=== PATIENT | male | born 2000 | race Hispanic/Latino ===

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

== ENCOUNTER 2021-09-24 18:52 | Inpatient (IN) | payer MEDICAID ==
[~2021-09-24] VITALS: Ht 175.3 cm; Wt 68.0 kg
[~2021-09-24 18:52] MED LIST: BUPR150T3 PO; CLIN-141 PO; CLON0.1T PO; HYD25 PO; INSLAN SQ; INSU200I SQ; INSU3INS3 SQ; LISD70CA PO; METF-444 PO; TRAZ-185 PO
[2021-09-24] MEDS ORDERED: 0.9%NACL 1000ML 1,000 ML IV ONE (19:30)
[2021-09-24 19:34] LABS: ABG BASE EXCESS -18.7 mmol/L (-2.0-3.0); ABG HCO3 6.6 mmol/L (21.0-28.0); ABG OXYGEN SATURATION 97.1 % (95.0-99.0); ABG PCO2 17 mmHg (35-48)
[2021-09-24 19:48] LABS: BASOPHILS % (AUTO) 1.8 % (0.0-5.0); EOSINOPHILS % (AUTO) 0.2 % (0.0-8.0); HEMATOCRIT 50.1 % (42-54); LYMPHOCYTES % (AUTO) 20.3 % (21.0-51.0); MEAN CORPUSCULAR HEMOGLOBIN 28.2 pg (27.0-33.0); MEAN CORPUSCULAR HGB CONC 35.3 g/dL (32.0-36.0); MEAN CORPUSCULAR VOLUME 79.9 fL (80-100); NEUTROPHILS % (AUTO) 66.1 % (40.0-77.0); PLATELET COUNT (AUTO) 276 K/uL (130-400); RED BLOOD CELL COUNT(AUTO) 6.27 MIL/uL (4.50-6.20); RED CELL DISTRIBUTION WIDTH 13.5 % (11.0-15.5); WHITE BLOOD COUNT (AUTO) 12.6 K/uL (4.8-10.8)
[2021-09-24 20:05] LABS: CREATININE 1.2 mg/dL (0.5-1.5); POTASSIUM 4.1 mmol/L (3.5-5.1)
[2021-09-24 20:11] LABS: ALBUMIN 4.4 g/dL (3.5-5.0); BILIRUBIN,TOTAL 0.5 mg/dL (0.2-1.0); MAGNESIUM 1.8 mg/dL (1.80-2.40); PHOSPHORUS 3.5 mg/dL (2.5-4.9)
[2021-09-24] MEDS ORDERED: LIDOCAINE HCL 1% 10 ML VIAL ONE (20:26)
[2021-09-24] MEDS ORDERED: 0.9%NACL 1000ML 1,000 ML IV SCH ×2 (20:30→21:00)
[2021-09-24] MEDS ORDERED: DEXTROSE 5 %-0.45 % NACL 1,000 ML IV PRN (20:30)
[2021-09-24] MEDS ORDERED: INSULIN HUMULIN R 100 UNIT/ML 3ML IV SCH (20:30)
[2021-09-24] MEDS ORDERED: HYDRALAZINE 20MG/ML VIAL IV PRN (21:00)
[2021-09-24] MEDS ORDERED: ONDANSETRON 4MG INJ IV PRN (21:00)
[2021-09-24] MEDS: CLINDAMYCIN IVPB 600MG/50ML 50 ML IV SCH (21:37)
[2021-09-24] MEDS ORDERED: ACETAMINOPHEN 325 MG TAB ONE (22:13)
[2021-09-24] MEDS ORDERED: ACETAMINOPHEN 325 MG TAB PO ONE (22:30)
[2021-09-24] MEDS: INSULIN REGULAR, HUMAN 3ML 100 UNIT in 0.9%NACL 100ML 99 ML IV PRN ×4 (22:32→23:47)
[2021-09-24] MEDS: 0.9%NACL 1000ML 1,000 ML IV SCH (22:33)
[2021-09-24 22:55] LABS: APPEARANCE,URINE Clear (CLEAR); BILIRUBIN,URINE Negative (NEGATIVE); COLOR,URINE Yellow (YELLOW); GLUCOSE, URINE (UA) >=1000 mg/dL (NEGATIVE); KETONES,URINE >=160 mg/dL (NEGATIVE); LEUKOCYTE ESTERASE ,URINE Negative (NEGATIVE); NITRATE,URINE Negative (NEGATIVE); OCCULT BLOOD,URINE Negative (NEGATIVE); PH,URINE 5.5 (5.0-8.0); PROTEIN,URINE POS 2+ mg/dL (NEGATIVE); UROBILINOGEN,URINE 0.2 mg/dL (0.2-1.0)
[2021-09-24 23:07] LABS: BACTERIA,URINE Few /HPF (None Seen)
[2021-09-24 23:25] LABS: ABG BASE EXCESS -17.5 mmol/L (-2.0-3.0); ABG OXYGEN SATURATION 97.9 % (95.0-99.0); ABG PCO2 16 mmHg (35-48)
[2021-09-24 23:49] LABS: CREATININE 1.1 mg/dL (0.5-1.5); POTASSIUM 3.7 mmol/L (3.5-5.1)
[2021-09-25] VITALS (8 sets, daily range): BP systolic 123–147; BP diastolic 66–99
[2021-09-25] MEDS: DEXTROSE 5 %-0.45 % NACL 1,000 ML IV PRN ×2 (01:47→20:46)
[2021-09-25] MEDS: INSULIN REGULAR, HUMAN 3ML 100 UNIT in 0.9%NACL 100ML 99 ML IV PRN ×6 (01:47→05:45)
[2021-09-25] MEDS: 0.9%NACL 1000ML 1,000 ML IV SCH ×4 (02:00→22:00)
[2021-09-25 03:36] LABS: ABG BASE EXCESS -14.7 mmol/L (-2.0-3.0); ABG HCO3 10.2 mmol/L (21.0-28.0); ABG OXYGEN SATURATION 97.2 % (95.0-99.0); ABG PCO2 23 mmHg (35-48)
[2021-09-25 04:02] LABS: MAGNESIUM 1.8 mg/dL (1.80-2.40); PHOSPHORUS 2.4 mg/dL (2.5-4.9); POTASSIUM 3.4 mmol/L (3.5-5.1)
[2021-09-25] MEDS: CLINDAMYCIN IVPB 600MG/50ML 50 ML IV SCH (05:55)
[2021-09-25 06:34] LABS: ABG OXYGEN SATURATION 90.2 % (95.0-99.0); BASE EXCESS,VENOUS BLOOD GAS -12.1 (-2.0-3.0); HCO3,VENOUS BLOOD GAS 14.2 (21.0-28.0); PCO2,VENOUS BLOOD GAS 34 (35-48)
[2021-09-25 07:05] LABS: CREATININE 0.9 mg/dL (0.5-1.5); MAGNESIUM 1.7 mg/dL (1.80-2.40); PHOSPHORUS 2.6 mg/dL (2.5-4.9); POTASSIUM 3.1 mmol/L (3.5-5.1)
[2021-09-25 09:38] LABS: HEMATOCRIT 47.4 % (42-54); MEAN CORPUSCULAR HEMOGLOBIN 28.3 pg (27.0-33.0); MEAN CORPUSCULAR HGB CONC 34.8 g/dL (32.0-36.0); MEAN CORPUSCULAR VOLUME 81.3 fL (80-100); RED BLOOD CELL COUNT(AUTO) 5.83 MIL/uL (4.50-6.20); RED CELL DISTRIBUTION WIDTH 13.8 % (11.0-15.5); WHITE BLOOD COUNT (AUTO) 11.6 K/uL (4.8-10.8)
[2021-09-25] MEDS: ENOXAPARIN SODIUM 30 MG/0.3 ML SQ SCH (10:38)
[2021-09-25 11:47] LABS: ABG OXYGEN SATURATION 53.2 % (95.0-99.0); BASE EXCESS,VENOUS BLOOD GAS -10.2 (-2.0-3.0); PCO2,VENOUS BLOOD GAS 36 (35-48)
[2021-09-25 12:48] LABS: CREATININE 0.9 mg/dL (0.5-1.5); MAGNESIUM 1.8 mg/dL (1.80-2.40); PHOSPHORUS 2.4 mg/dL (2.5-4.9); POTASSIUM 3.4 mmol/L (3.5-5.1)
[2021-09-25] MEDS ORDERED: SERT-440 PO (13:07)
[2021-09-25] MEDS ORDERED: ROSU10TA28 PO (13:07)
[2021-09-25] MEDS ORDERED: ARIP15TA18 PO (13:07)
[2021-09-25] MEDS ORDERED: METF-444 PO (13:07)
[2021-09-25] MEDS ORDERED: HYDR-4030 PO (13:07)
[2021-09-25] MEDS ORDERED: CLON0.1T PO (13:07)
[2021-09-25] MEDS ORDERED: CLON0.3T PO (13:07)
[2021-09-25] MEDS ORDERED: TRAZ-187 PO (13:07)
[2021-09-25] MEDS ORDERED: VANCOMYCIN PROTOCOL PER PHARMACY IV SCH (13:30)
[2021-09-25] MEDS: MEROPENEM 1 GM VIAL IVP SCH ×2 (14:34→21:25)
[2021-09-25] MEDS: VANCOMYCIN 1G/250ML KIT 250 ML IV SCH ×2 (14:34→22:24)
[2021-09-25 15:37] LABS: CREATININE 0.9 mg/dL (0.5-1.5); MAGNESIUM 1.6 mg/dL (1.80-2.40); PHOSPHORUS 2.2 mg/dL (2.5-4.9); POTASSIUM 3.2 mmol/L (3.5-5.1)
[2021-09-25 19:27] LABS: ABG OXYGEN SATURATION 92.5 % (95.0-99.0); PCO2,VENOUS BLOOD GAS 32 (35-48)
[2021-09-25 19:56] LABS: CREATININE 0.8 mg/dL (0.5-1.5); MAGNESIUM 1.7 mg/dL (1.80-2.40); PHOSPHORUS 1.8 mg/dL (2.5-4.9)
[2021-09-25 19:58] LABS: POTASSIUM 2.9 mmol/L (3.5-5.1)
[2021-09-25] MEDS: POTASSIUM CHLORIDE 10MEQ/100ML 100 ML IV PRN (20:05)
[2021-09-25] MEDS ORDERED: POTASSIUM PHOS 15 mMOL+NS250ML 250 ML IV PRN (21:00)
[2021-09-25] MEDS: MAGNESIUM 2GM PREMIX 50ML 50 ML IV PRN (23:16)
[2021-09-26] VITALS (14 sets, daily range): BP systolic 109–130; BP diastolic 55–85
[2021-09-26] MEDS: POTASSIUM CHLORIDE 10MEQ/100ML 100 ML IV PRN (01:28)
[2021-09-26] MEDS: 0.9%NACL 1000ML 1,000 ML IV SCH ×5 (03:00→17:52)
[2021-09-26 04:03] LABS: HEMOGLOBIN A1C 12.9 % (4.0-6.0)
[2021-09-26 04:26] LABS: POTASSIUM 2.9 mmol/L (3.5-5.1)
[2021-09-26 04:27] LABS: CREATININE 0.7 mg/dL (0.5-1.5); MAGNESIUM 1.8 mg/dL (1.80-2.40); PHOSPHORUS 1.9 mg/dL (2.5-4.9)
[2021-09-26] MEDS ORDERED: POTASSIUM CHLORIDE 10MEQ/100ML 100 ML IV ONE (04:36)
[2021-09-26] MEDS ORDERED: LIDOCAINE HCL-MPF 1% 2ML VIAL IV PRN (05:00)
[2021-09-26] MEDS ORDERED: POTASSIUM CHLORIDE 20MEQ/100ML 100 ML IV PRN (05:00)
[2021-09-26] MEDS: MEROPENEM 1 GM VIAL IVP SCH ×3 (05:01→21:42)
[2021-09-26] MEDS: MAGNESIUM 2GM PREMIX 50ML 50 ML IV PRN ×2 (05:52→18:38)
[2021-09-26] MEDS ORDERED: INSULIN GLARGINE 100 UNITS/ML 10 ML VIAL SQ ONE (06:30)
[2021-09-26] MEDS: INSULIN HUMULIN R 100 UNIT/ML 3ML SQ SCH ×8 (06:49→22:01)
[2021-09-26] MEDS ORDERED: KCL 20 MEQ ERTAB PO PRN (07:30)
[2021-09-26] MEDS: VANCOMYCIN 1G/250ML KIT 250 ML IV SCH ×2 (08:43→21:43)
[2021-09-26] MEDS: ENOXAPARIN SODIUM 30 MG/0.3 ML SQ SCH (08:46)
[2021-09-26] MEDS: KCL 20 MEQ ERTAB PO SCH (08:46)
[2021-09-26 08:53] LABS: ABG BASE EXCESS -5.6 mmol/L (-2.0-3.0); ABG HCO3 19.1 mmol/L (21.0-28.0); ABG PCO2 35 mmHg (35-48)
[2021-09-26] MEDS ORDERED: ACETAMINOPHEN 325 MG TAB PO PRN (10:30)
[2021-09-26] MEDS ORDERED: MORPHINE 2 MG SYG ONE (14:56)
[2021-09-26] MEDS ORDERED: MORPHINE 2 MG SYG IVP ONE (14:56)
[2021-09-26] MEDS: IBUPROFEN 400 MG TABLET PO PRN (17:52)
[2021-09-26 20:12] LABS: HEMATOCRIT 39.4 % (42-54); MEAN CORPUSCULAR HEMOGLOBIN 27.8 pg (27.0-33.0); MEAN CORPUSCULAR HGB CONC 34.5 g/dL (32.0-36.0); MEAN CORPUSCULAR VOLUME 80.4 fL (80-100); PLATELET COUNT (AUTO) 181 K/uL (130-400); RED CELL DISTRIBUTION WIDTH 13.9 % (11.0-15.5); WHITE BLOOD COUNT (AUTO) 6.4 K/uL (4.8-10.8)
[2021-09-26 20:17] LABS: MAGNESIUM 2.2 mg/dL (1.80-2.40); POTASSIUM 3.9 mmol/L (3.5-5.1)
[2021-09-26 20:35] LABS: BAND NEUTROPHILS % (MANUAL) 8 % (0-2); LYMPHOCYTES % (MANUAL) 16 % (22-44); MAN.DIFF COMMENT-IMPRESSION MANUAL DIFFERENTIAL; MONOCYTES % (MANUAL) 5 % (2-9); REACTIVE LYMPHOCYTES 6 % (0-0); SEGMENTED NEUTROPHILS % 65 % (40-70)
[2021-09-26] MEDS: ARIPIPRAZOLE 5 MG TABLET PO SCH (20:43)
[2021-09-26] MEDS ORDERED: 0.9% NACL 250ML 250 ML ONE (21:04)
[2021-09-26] MEDS: TRAZODONE HCL 100 MG TABLET PO SCH (21:43)
[2021-09-26] MEDS: CLONIDINE HCL 0.3 MG TABLET PO SCH (21:43)
[2021-09-26] MEDS: SERTRALINE HCL 50 MG TABLET PO SCH (21:43)
[2021-09-27] MEDS: 0.9%NACL 1000ML 1,000 ML IV SCH ×3 (01:14→09:00)
[2021-09-27 04:03] VITALS: BP 109/72
[2021-09-27] MEDS: MEROPENEM 1 GM VIAL IVP SCH (06:29)
[2021-09-27] MEDS: INSULIN HUMULIN R 100 UNIT/ML 3ML SQ SCH ×7 (06:38→20:40)
[2021-09-27 06:43] LABS: BASOPHILS % (AUTO) 1.1 % (0.0-5.0); EOSINOPHILS % (AUTO) 2.5 % (0.0-8.0); HEMATOCRIT 38.2 % (42-54); MEAN CORPUSCULAR HEMOGLOBIN 27.5 pg (27.0-33.0); MEAN CORPUSCULAR HGB CONC 34.6 g/dL (32.0-36.0); MEAN CORPUSCULAR VOLUME 79.6 fL (80-100); MONOCYTES % (AUTO) 12.3 % (3.0-13.0); NEUTROPHILS % (AUTO) 37.7 % (40.0-77.0); PLATELET COUNT (AUTO) 174 K/uL (130-400); WHITE BLOOD COUNT (AUTO) 4.4 K/uL (4.8-10.8)
[2021-09-27 06:50] LABS: CREATININE 0.6 mg/dL (0.5-1.5); POTASSIUM 3.6 mmol/L (3.5-5.1)
[2021-09-27] MEDS: INSULIN GLARGINE 100 UNITS/ML 10 ML VIAL SQ SCH (07:02)
[2021-09-27 07:35] VITALS: BP 112/62
[2021-09-27] MEDS ORDERED: COMPOUND IV REFRIGERATED 1 EACH IVSOLN MISC PRN (09:00)
[2021-09-27] MEDS: VYVANSE 70 MG PO SCH (09:00)
[2021-09-27] MEDS: KCL 20 MEQ ERTAB PO SCH (09:00)
[2021-09-27] MEDS ORDERED: VANCOMYCIN 1.25GM/NS 250ML IVPB SCH ×2 (09:00)
[2021-09-27] MEDS: CLONIDINE HCL 0.1 MG TABLET PO SCH (09:03)
[2021-09-27] MEDS: BUPROPION HCL 150 MG TABLET.SA PO SCH (09:12)
[2021-09-27] MEDS: HYDROXYZINE 25 MG TABLET PO SCH (09:12)
[2021-09-27] MEDS: ATORVASTATIN 20 MG TABLET PO SCH (09:12)
[2021-09-27] MEDS: ENOXAPARIN SODIUM 30 MG/0.3 ML SQ SCH (09:14)
[2021-09-27 11:35] VITALS: BP 120/74
[2021-09-27] MEDS: CEFAZOLIN SODIUM 1 GM VIAL IVP SCH ×2 (13:27→21:13)
[2021-09-27 15:35] VITALS: BP 121/68
[2021-09-27 20:12] VITALS: BP 110/64
[2021-09-27] MEDS: ARIPIPRAZOLE 5 MG TABLET PO SCH (21:00)
[2021-09-27] MEDS: CLONIDINE HCL 0.3 MG TABLET PO SCH (21:13)
[2021-09-27] MEDS: TRAZODONE HCL 100 MG TABLET PO SCH (21:13)
[2021-09-27] MEDS: SERTRALINE HCL 50 MG TABLET PO SCH (21:13)
[2021-09-27 23:25] VITALS: BP 101/48
[2021-09-28 04:13] VITALS: BP 94/49
[2021-09-28] MEDS: CEFAZOLIN SODIUM 1 GM VIAL IVP SCH ×3 (06:02→19:52)
[2021-09-28] MEDS: INSULIN GLARGINE 100 UNITS/ML 10 ML VIAL SQ SCH (06:41)
[2021-09-28] MEDS: INSULIN HUMULIN R 100 UNIT/ML 3ML SQ SCH ×7 (06:41→19:54)
[2021-09-28 07:21] LABS: BASOPHILS % (AUTO) 0.9 % (0.0-5.0); EOSINOPHILS % (AUTO) 1.3 % (0.0-8.0); LYMPHOCYTES % (AUTO) 54.2 % (21.0-51.0); MEAN CORPUSCULAR HEMOGLOBIN 27.9 pg (27.0-33.0); MEAN CORPUSCULAR HGB CONC 34.4 g/dL (32.0-36.0); MEAN CORPUSCULAR VOLUME 80.9 fL (80-100); MONOCYTES % (AUTO) 8.6 % (3.0-13.0); NEUTROPHILS % (AUTO) 34.1 % (40.0-77.0); PLATELET COUNT (AUTO) 168 K/uL (130-400); RED BLOOD CELL COUNT(AUTO) 4.45 MIL/uL (4.50-6.20); RED CELL DISTRIBUTION WIDTH 13.9 % (11.0-15.5); WHITE BLOOD COUNT (AUTO) 4.5 K/uL (4.8-10.8)
[2021-09-28 07:35] VITALS: BP 96/47
[2021-09-28 07:35] LABS: CREATININE 0.6 mg/dL (0.5-1.5); POTASSIUM 3.6 mmol/L (3.5-5.1)
[2021-09-28] MEDS: CLONIDINE HCL 0.1 MG TABLET PO SCH (08:00)
[2021-09-28] MEDS: ATORVASTATIN 20 MG TABLET PO SCH (08:32)
[2021-09-28] MEDS: ENOXAPARIN SODIUM 30 MG/0.3 ML SQ SCH (08:33)
[2021-09-28] MEDS: HYDROXYZINE 25 MG TABLET PO SCH (08:33)
[2021-09-28] MEDS: BUPROPION HCL 150 MG TABLET.SA PO SCH (08:33)
[2021-09-28] MEDS: VYVANSE 70 MG PO SCH (08:34)
[2021-09-28] MEDS: KCL 20 MEQ ERTAB PO SCH (08:41)
[2021-09-28 11:17] VITALS: BP 97/53
[2021-09-28 15:35] VITALS: BP 107/67
[2021-09-28 19:51] VITALS: BP 114/68
[2021-09-28] MEDS: TRAZODONE HCL 100 MG TABLET PO SCH (19:53)
[2021-09-28] MEDS: CLONIDINE HCL 0.3 MG TABLET PO SCH (19:53)
[2021-09-28] MEDS: ARIPIPRAZOLE 5 MG TABLET PO SCH (19:53)
[2021-09-28] MEDS: SERTRALINE HCL 50 MG TABLET PO SCH (19:53)
[2021-09-28 23:24] VITALS: BP 97/60
[2021-09-29] MEDS: CEFAZOLIN SODIUM 1 GM VIAL IVP SCH ×3 (03:09→20:17)
[2021-09-29 03:36] VITALS: BP 93/51
[2021-09-29 06:59] LABS: BASOPHILS % (AUTO) 0.9 % (0.0-5.0); EOSINOPHILS % (AUTO) 1.6 % (0.0-8.0); HEMATOCRIT 38.1 % (42-54); LYMPHOCYTES % (AUTO) 41.8 % (21.0-51.0); MEAN CORPUSCULAR HEMOGLOBIN 27.6 pg (27.0-33.0); MEAN CORPUSCULAR HGB CONC 33.1 g/dL (32.0-36.0); MEAN CORPUSCULAR VOLUME 83.4 fL (80-100); MONOCYTES % (AUTO) 12.5 % (3.0-13.0); NEUTROPHILS % (AUTO) 42.5 % (40.0-77.0); PLATELET COUNT (AUTO) 189 K/uL (130-400); RED BLOOD CELL COUNT(AUTO) 4.57 MIL/uL (4.50-6.20); RED CELL DISTRIBUTION WIDTH 14.1 % (11.0-15.5); WHITE BLOOD COUNT (AUTO) 5.7 K/uL (4.8-10.8)
[2021-09-29] MEDS: INSULIN GLARGINE 100 UNITS/ML 10 ML VIAL SQ SCH (07:07)
[2021-09-29] MEDS: INSULIN HUMULIN R 100 UNIT/ML 3ML SQ SCH ×7 (07:08→21:00)
[2021-09-29 07:14] LABS: CREATININE 0.7 mg/dL (0.5-1.5); POTASSIUM 4.2 mmol/L (3.5-5.1)
[2021-09-29 08:00] VITALS: BP 87/41
[2021-09-29] MEDS: CLONIDINE HCL 0.1 MG TABLET PO SCH (08:00)
[2021-09-29] MEDS: KCL 20 MEQ ERTAB PO SCH (09:00)
[2021-09-29] MEDS: VYVANSE 70 MG PO SCH (09:00)
[2021-09-29] MEDS: ATORVASTATIN 20 MG TABLET PO SCH (09:34)
[2021-09-29] MEDS: BUPROPION HCL 150 MG TABLET.SA PO SCH (09:35)
[2021-09-29] MEDS: ENOXAPARIN SODIUM 30 MG/0.3 ML SQ SCH (09:35)
[2021-09-29] MEDS: HYDROXYZINE 25 MG TABLET PO SCH (09:36)
[2021-09-29] MEDS: 0.9%NACL 1000ML 1,000 ML IV SCH ×2 (10:46→23:50)
[2021-09-29 11:57] VITALS: BP 96/51
[2021-09-29 15:42] LABS: INR 0.95 (0.85-1.15); PROTHROMBIN TIME 10.4 SEC (9.6-11.6)
[2021-09-29 15:43] LABS: PARTIAL THROMBOPLASTIN TIME 26.2 SEC (26.3-35.5)
[2021-09-29 15:45] VITALS: BP 96/46
[2021-09-29] MEDS: IBUPROFEN 400 MG TABLET PO PRN (18:04)
[2021-09-29 20:00] VITALS: BP 106/68
[2021-09-29] MEDS: TRAZODONE HCL 100 MG TABLET PO SCH (20:16)
[2021-09-29] MEDS: SERTRALINE HCL 50 MG TABLET PO SCH (20:16)
[2021-09-29] MEDS: ARIPIPRAZOLE 5 MG TABLET PO SCH (20:17)
[2021-09-29] MEDS: CLONIDINE HCL 0.3 MG TABLET PO SCH (21:00)
[2021-09-30 00:55] VITALS: BP 91/64
[2021-09-30 04:07] VITALS: BP 102/57
[2021-09-30] MEDS: CEFAZOLIN SODIUM 1 GM VIAL IVP SCH ×3 (04:50→20:42)
[2021-09-30] MEDS: INSULIN HUMULIN R 100 UNIT/ML 3ML SQ SCH ×7 (06:41→20:41)
[2021-09-30] MEDS: INSULIN GLARGINE 100 UNITS/ML 10 ML VIAL SQ SCH (06:52)
[2021-09-30 07:11] LABS: HEMATOCRIT 40.3 % (42-54); MEAN CORPUSCULAR HEMOGLOBIN 27.8 pg (27.0-33.0); MEAN CORPUSCULAR VOLUME 84.1 fL (80-100); RED BLOOD CELL COUNT(AUTO) 4.79 MIL/uL (4.50-6.20); RED CELL DISTRIBUTION WIDTH 13.7 % (11.0-15.5); WHITE BLOOD COUNT (AUTO) 5.7 K/uL (4.8-10.8)
[2021-09-30 07:27] LABS: CREATININE 0.6 mg/dL (0.5-1.5); POTASSIUM 4.2 mmol/L (3.5-5.1)
[2021-09-30] MEDS: KCL 20 MEQ ERTAB PO SCH (07:34)
[2021-09-30 08:00] VITALS: BP 104/66
[2021-09-30] MEDS: CLONIDINE HCL 0.1 MG TABLET PO SCH (08:00)
[2021-09-30] MEDS: HYDROXYZINE 25 MG TABLET PO SCH (08:41)
[2021-09-30] MEDS: ATORVASTATIN 20 MG TABLET PO SCH (08:41)
[2021-09-30] MEDS: BUPROPION HCL 150 MG TABLET.SA PO SCH (08:41)
[2021-09-30] MEDS: ENOXAPARIN SODIUM 30 MG/0.3 ML SQ SCH (08:41)
[2021-09-30] MEDS: VYVANSE 70 MG PO SCH (09:00)
[2021-09-30 12:00] VITALS: BP 114/70
[2021-09-30 16:00] VITALS: BP 106/58
[2021-09-30] MEDS ORDERED: INSU200I SQ (17:55)
[2021-09-30] MEDS ORDERED: INSU3INS3 SQ (17:55)
[2021-09-30] MEDS ORDERED: METF-446 PO (17:55)
[2021-09-30] MEDS: CLONIDINE HCL 0.3 MG TABLET PO SCH (20:43)
[2021-09-30] MEDS: ARIPIPRAZOLE 5 MG TABLET PO SCH (20:43)
[2021-09-30] MEDS: SERTRALINE HCL 50 MG TABLET PO SCH (20:44)
[2021-09-30] MEDS: TRAZODONE HCL 100 MG TABLET PO SCH (20:45)
[2021-09-30 21:13] VITALS: BP 112/62
[2021-11-04] MEDS ORDERED: LISD70CA PO (16:16)
== END 2021-09-30 22:00 | disposition home or self-care (01) | DRG 720 ==
LOC: EDH 18:54 → EDHIP 18:55 → 2DH 09-25 14:14 → 3BH 09-26 15:51
PROVIDERS: ADMIT Hospitalist; ATTEND Hospitalist
PROC: 0H94XZZ Drainage of Neck Skin, External Approach (ICD-10-PCS; principal; 2021-09-24)
PROC: 05HY33Z Insertion of Infusion Device into Upper Vein, Percutaneous Approach (ICD-10-PCS; 2021-09-29)
DX: A41.01 Sepsis due to Methicillin susceptible Staphylococcus aureus (principal); E11.10 Type 2 diabetes mellitus with ketoacidosis without coma; N17.9 Acute kidney failure, unspecified; L02.11 Cutaneous abscess of neck; E11.65 Type 2 diabetes mellitus with hyperglycemia; F90.9 Attention-deficit hyperactivity disorder, unspecified type; E87.6 Hypokalemia; F32.A Depression, unspecified; E86.0 Dehydration; F41.9 Anxiety disorder, unspecified; L03.221 Cellulitis of neck; F41.1 Generalized anxiety disorder; Z20.822 Contact with and (suspected) exposure to COVID-19; Z79.4 Long term (current) use of insulin; Z71.89 Other specified counseling; Z91.14 Patient's other noncompliance with medication regimen; Z91.19 Patient's noncompliance with other medical treatment and regimen; Z88.0 Allergy status to penicillin; Z83.3 Family history of diabetes mellitus; Z81.8 Family history of other mental and behavioral disorders; Z82.0 Family history of epilepsy and other diseases of the nervous system
CPT/HCPCS: 36415; 36600; 71045; 76536; 80048; 80053; 80202; 81001; 82010; 82435; 82550; 82803; 82947; 82948; 83036; 83605; 83735; 84100; 84132; 84145; 84295; 84484; 85018; 85025; 85027; 85610; 85730; 87040; 87077; 87088; 87186; 87635; 93005; 93306; 93356; C1894; C9803; G0378; J0690; J1650; J1815; J2185; J3370; J3475; J3490; J7030; J7042; J7050